=== PATIENT | female | born 1960 | race Two or more races ===

== ENCOUNTER 2023-05-19 08:09 | Emergency (ER) | payer OTHER, SELFPAY ==
[2023-05-19 08:36] VITALS: BP 123/76; PULSE 75; RESP 20; TEMP 36.4; O2SAT 97; BMI 35.4
--- NOTE | 2023-05-19 09:24 | ED_ITS ---
HPI - Extremity Problem General Chief complaint: Extremity Problem, Nontraumatic Stated complaint: LEFT HIP PAIN, NONTRAUMATIC Time Seen by Provider: 05/19/23 08:40 Source: patient Mode of arrival: Wheelchair Limitations: no limitations History of Present Illness HPI Narrative: The patient is coming with a few hours history of left-sided hip pain that started after she was sleeping in her recliner, no history of fall or trauma she mentioned that the pain started in her back radiates to her knee there is no numbness tingling or weakness The patient also have no incontinence of urine or stool Related Data Previous Rx's Medication Instructions Recorded diclofenac sodium 50 mg 50 mg PO Q12H PRN pain #14 tabs 05/19/23 tablet,delayed release orphenadrine citrate 100 mg 100 mg PO Q12H PRN muscle spasm 05/19/23 tablet,extended release #10 tabs Allergies Allergy/AdvReac Type Severity Reaction Status Date / Time No Known Drug Allergies Allergy Verified 05/19/23 08:35 Review of Systems ROS Status of ROS 10 or more systems reviewed and unremarkable except as noted in history and below PFSH [facility] Social History Smoking status: Never smoker Exam Narrative Exam Narrative: Nurses notes and vital signs reviewed and patient is not hypoxic. General: Well-appearing and in no apparent distress. Skin: Warm, dry, no pallor noted. No rash. Head: Normocephalic, atraumatic. Neck: Supple, non-tender. Eye: Pupils are equal, round and EOMI. No scleral icterus. Ears, Nose, Mouth, and Throat: TM are clear, no nasal mucosal hypertrophy. Oral mucosa is moist, no posterior oropharynx erythema, uvula is mid-line Cardiovascular: Regular Rate and Rhythm without murmur, gallop or rub. Respiratory: No accessory muscle use or respiratory distress. Lungs are clear to auscultation, no wheezing, rales or rhonchi Chest Wall: no tenderness Back: No midline thoracic or lumbar vertebral tenderness. No CVA tenderness Musculoskeletal: normal ROM, no calf or popliteal tenderness, no lower extrem ity edema/swelling GI: Abdomen is soft, non-distended. Normal bowel sounds. No masses appreciated. No tenderness to palpation. No rebound, guarding, or rigidity noted. Neurological: A&O x4. No cranial nerve dysfunction observed. No truncal ataxia. Moves all extremities. Sensation intact. Psychiatric: Cooperative and interactive. Normal mood and affect. Back examination Left paraspinal muscle tenderness and tenderness upon palpation of the hip on the left side Constitutional Vital Signs, click to edit/add: Last Vital Signs Temp 97.6 F 05/19/23 08:36 Pulse 58 L 05/19/23 12:25 Resp 14 05/19/23 12:25 BP 147/94 H 05/19/23 12:25 Pulse Ox 97 05/19/23 12:25 O2 Del Method Room Air 05/19/23 12:25 Course Vital Signs Vital signs: Vital Signs Temperature 97.6 F 05/19/23 08:36 Pulse Rate 75 05/19/23 08:36 Respiratory Rate 20 05/19/23 08:36 Blood Pressure 123/76 05/19/23 08:36 Pulse Oximetry 97 05/19/23 08:36 Oxygen Delivery Method Room Air 05/19/23 08:36 Temperature 97.6 F 05/19/23 08:36 Pulse Rate 58 L 05/19/23 12:25 Respiratory Rate 14 05/19/23 12:25 Blood Pressure 147/94 H 05/19/23 12:25 Pulse Oximetry 97 05/19/23 12:25 Oxygen Delivery Method Room Air 05/19/23 12:25 MDM - Extremity (Nontraumatic) MDM Narrative Medical decision making narrative: X-ray of the hip as well as CT of the lumbar spine showed no acute significant pathology but the patient was treated in the ER with Toradol and Norflex after which she was feeling better she was discharged home with similar medication and to follow-up with her doctor She was instructed to come back in case of any alarming symptoms and she was advised about rest and not to carry any heavy objects The patient is to follow up with primary care physician in next 2-3 days or to return to the emergency department should any of the signs or symptoms worsen or new symptoms develop. The patient agrees with the following Diagnosis and Treatment plan and the patient will be discharged home. Discharge Plan Discharge Chief Complaint: Extremity Problem, Nontraumatic Clinical Impression: Osteoarthritis, hip, bilateral, Back pain Patient Disposition: Home, Self-Care Time of Disposition Decision: 12:09 Condition: Good Mode of Transportation: Private Vehicle Prescriptions / Home Meds: New diclofenac sodium 50 mg tablet,delayed release (DR/EC) 50 mg PO Q12H PRN (Reason: pain) Qty: 14 0RF orphenadrine citrate 100 mg tablet extended release 100 mg PO Q12H PRN (Reason: muscle spasm) Qty: 10 0RF Instructions: Acute Low Back Pain (ED) Stand Alone Forms: Portal Instructions Referrals: Physician,Non-Staff, MD [Primary Care Provider] - 1 week Pieter Conn MD [Physician] - 1 week Discharge Date/Time: 05/19/23 12:36
--- NOTE | 2023-05-19 09:24 | CT_ITS ---
The [address] [address] Patient Name: ALINE VALENZUELA MRN: [id number] date: 1960 Sex: F Assigned Patient Location: ER Current Patient Location: ER Accession/Order Number: [id number] Exam Date: 05/19/2023 09:45 Report Date: 05/19/2023 11:32 At the request of: ROYA DOTY Procedure: CT lumbar spine wo con EXAMINATION: CT lumbar spine wo con HISTORY: pain COMPARISON: None. TECHNIQUE: CT scan of the lumbar spine was performed without IV contrast. CT dose reduction technique was used, including Automated Exposure Control. FINDINGS: There is normal lumbar lordosis. No spondylolisthesis. Vertebral body height and intervertebral disc spaces are unremarkable. There is broad-based disc bulge at L3-L4 and L5-S1 levels without significant spinal canal stenosis. There is ligamentum flavum hypertrophy and broad-based disc bulge at L4-L5 level resulting in mild bilateral neural foraminal narrowing at this level. No significant stenosis of the remaining neural foraminal or spinal canal . No prevertebral soft tissue swelling. No evidence for fracture . CT/CT lumbar spine wo con IMPRESSION: No acute fracture or subluxation. Ligamentum flavum hypertrophy and broad-based disc bulge at L4-L5 level resulting in mild bilateral neural foraminal narrowing at this level. If symptoms persists or deteriorate, lumbar MRI is recommended for better evaluation of the neural foramina and spinal canal. Electronically authenticated by: LAWANDA CLEANING Date: 05/19/2023 11:32
--- NOTE | 2023-05-19 09:24 | XR_ITS ---
The [address] [address] Patient Name: ALINE VALENZUELA MRN: [id number] date: 1960 Sex: F Assigned Patient Location: ER Current Patient Location: ER Accession/Order Number: [id number] Exam Date: 05/19/2023 09:45 Report Date: 05/19/2023 10:37 At the request of: ROYA DOTY Procedure: XR hip LT 2V w/ pelvis LEFT HIP X-RAY TWO VIEWS AND X-RAY PELVIS ONE VIEW HISTORY: Pain. COMPARISON: None. FINDINGS: There is no acute fracture or dislocation of the pelvis. There are mild degenerative changes bilateral hip joints. There are calcific densities seen lateral to the left. The sacroiliac joints are intact. There are enthesopathic changes left anterior superior iliac joint. XR/XR hip LT 2V w/ pelvis IMPRESSION: No acute bony abnormality or destructive bone lesions. Mild osteoarthritis bilateral hips. Electronically authenticated by: DHRUV KARIMI Date: 05/19/2023 10:37
[2023-05-19] MEDS: KETOROLAC TROMETHAMINE 30 MG/ML VIAL IM (09:30)
[2023-05-19] MEDS: ORPHENADRINE 60 MG/ 2 ML VIAL IM (09:31)
[2023-05-19] MEDS: TRAMADOL HCL 50 MG TABLET PO (12:21)
[2023-05-19 12:25] VITALS: BP 147/94; PULSE 58; RESP 14; O2SAT 97
== END 2023-05-19 12:36 | disposition home or self-care (01) ==
PROVIDERS: Emergency Provider Emergency Medicine
DX: M16.0 Bilateral primary osteoarthritis of hip (principal); M54.9 Dorsalgia, unspecified
CPT/HCPCS: 72131; 73502; 96372; 99285